=== PATIENT | male | born 1960 | race Caucasian/White ===

== ENCOUNTER 2025-02-17 16:34 | Inpatient (IN) | payer MEDICARE, OTHER ==
[~2025-02-17] VITALS: Ht 175.3 cm; Wt 76.2 kg
[2025-02-17 18:09] LABS: PLATELET COUNT (AUTO) 223 K/uL (150-450); RED BLOOD CELL COUNT(AUTO) 4.60 MIL/uL (4.5-6.0); RED CELL DISTRIBUTION WIDTH 14.3 % (11.5-15.0); WHITE BLOOD COUNT (AUTO) 6.1 K/uL (4.3-11.0)
[2025-02-17 18:24] LABS: ALCOHOL, BLOOD < 3 mg/dL (0-10); ASPARTATE AMINOTRANSFERASE 30 U/L (15-37); CALCIUM, SERUM 9.3 mg/dL (8.5-10.1); CREATININE 1.3 mg/dL (0.6-1.3); SODIUM SERUM 143 mmol/L (136-145); TOTAL PROTEIN, SERUM 6.8 g/dL (6.4-8.2); UREA NITROGEN, BLOOD 25 mg/dL (7-18)
[2025-02-17] MEDS ORDERED: MAGN400O6 PO (18:33)
[2025-02-17] MEDS ORDERED: MELA5TAB PO (18:33)
[2025-02-17] MEDS ORDERED: BREX2TAB PO (18:33)
[2025-02-17] MEDS ORDERED: ACET325T53 PO (18:33)
[2025-02-17] MEDS ORDERED: BISA10SU11 RC (18:33)
[2025-02-17] MEDS ORDERED: MINE133E RC (18:33)
[2025-02-17] MEDS ORDERED: ACET-73 PO (18:33)
[2025-02-17] MEDS ORDERED: ATOR10TA PO (18:33)
[2025-02-17] MEDS ORDERED: QUVIVIQ PO (18:33)
[2025-02-17 20:54] LABS: AMPHETAMINE, URINE NEGATIVE (NEGATIVE); APPEARANCE,URINE CLEAR (CLEAR); BARBITURATE, URINE NEGATIVE (NEGATIVE); BENZODIAZEPINE, URINE NEGATIVE (NEGATIVE); BLOOD, URINE 1+ Ery/uL (NEGATIVE); CANNABINOID, URINE NEGATIVE (NEGATIVE); COCCAINE, URINE NEGATIVE (NEGATIVE); LEUKOCYTE ESTERASE ,URINE NEGATIVE (NEGATIVE); NITRITE, URINE NEGATIVE (NEGATIVE); OPIATE, URINE NEGATIVE (NEGATIVE); UGLUCOSE NEGATIVE (NEGATIVE)
[2025-02-17 21:21] LABS: ADD URINE CULTURE NO; SQUAMOUS EPITHELIAL CELL,UR Few /HPF (None Seen)
[2025-02-17 22:00] VITALS: BP 141/79; TEMP 98; O2SAT 98
[2025-02-17] MEDS ORDERED: ZOLPIDEM TARTRATE 5 MG TABLET PO PRN (23:00)
[2025-02-17] MEDS ORDERED: MAG HYDROX/AL HYDROX/SIMETH 30 ML UDC PO PRN (23:00)
[2025-02-17] MEDS ORDERED: LORAZEPAM 1 MG TABLET PO PRN (23:00)
[2025-02-17] MEDS ORDERED: MAGNESIUM HYDROXIDE 30 ML UDC PO PRN (23:00)
[2025-02-17] MEDS ORDERED: ACETAMINOPHEN 325 MG TABLET PO PRN (23:00)
[2025-02-17] MEDS ORDERED: LORAZEPAM 0.5 MG TABLET PO PRN (23:00)
[2025-02-17] MEDS: BLOOD SUGAR DIAGNOSTIC 1 EACH STRIP IN ONE (23:23)
[2025-02-18 08:00] VITALS: BP 128/81; TEMP 97.8; O2SAT 100
[2025-02-18 08:17] LABS: ASPARTATE AMINOTRANSFERASE 28.0 U/L (15-37); CALCIUM, SERUM 9.0 mg/dL (8.5-10.1); CREATININE 1.3 mg/dL (0.6-1.3); SODIUM SERUM 144.0 mmol/L (136-145); TOTAL PROTEIN, SERUM 6.3 g/dL (6.4-8.2); UREA NITROGEN, BLOOD 23.0 mg/dL (7-18)
[2025-02-18 08:29] LABS: LDL 84 mg/dL (0-99)
[2025-02-18] MEDS: DIVALPROEX SODIUM 125 MG TABLET.DR PO SCH (13:39)
[2025-02-18] MEDS ORDERED: ACETAMINOPHEN ES 500 MG TABLET PO PRN (15:30)
[2025-02-18] MEDS ORDERED: ACETAMINOPHEN 325 MG TABLET PO PRN (15:30)
[2025-02-18] MEDS ORDERED: MINERAL OIL 133 ML (PYXIS) 1 EA ENEMA RC PRN (15:30)
[2025-02-18] MEDS ORDERED: MAGNESIUM HYDROXIDE 30 ML UDC PO PRN (15:30)
[2025-02-18] MEDS ORDERED: BISACODYL SUPP (10 MG) 10 MG/SUPP.RECT SUPP.RECT RC PRN (15:30)
[2025-02-18] MEDS ORDERED: HOME MED MISCELLANEOUS XX SCH (15:30)
[2025-02-18 16:00] VITALS: BP 152/79; TEMP 98.4; O2SAT 98
[2025-02-18] MEDS: ATORVASTATIN 10 MG TABLET PO SCH (18:02)
[2025-02-18 19:58] VITALS: BP 151/99; TEMP 98.1; O2SAT 97
[2025-02-18] MEDS ORDERED: TRAZ-182 PO (20:12)
[2025-02-19 07:20] LABS: CREATININE 1.3 mg/dL (0.6-1.3)
[2025-02-19 08:00] VITALS: BP 120/73; TEMP 98.3; O2SAT 98
[2025-02-19] MEDS: QUETIAPINE FUMARATE 25 MG TABLET PO SCH ×2 (18:10→21:59)
[2025-02-19 20:47] VITALS: BP 112/70; TEMP 98; O2SAT 98
[2025-02-20 08:00] VITALS: BP 107/56; TEMP 98.6; O2SAT 100
[2025-02-20 16:00] VITALS: BP 115/70; TEMP 98.2; O2SAT 98
[2025-02-20 20:00] VITALS: BP 123/79; TEMP 98.2; O2SAT 98
[2025-02-21 08:08] VITALS: BP 131/74; TEMP 97.6; O2SAT 98
[2025-02-21 16:00] VITALS: BP 136/87; TEMP 98.2; O2SAT 99
[2025-02-21 20:10] VITALS: BP 144/81; TEMP 98; O2SAT 98
[2025-02-21] MEDS: ZOLPIDEM TARTRATE 5 MG TABLET PO PRN (22:32)
[2025-02-22 08:00] VITALS: BP 135/86; TEMP 97.7; O2SAT 99
[2025-02-22] MEDS: DIVALPROEX SODIUM 125 MG TABLET.DR PO SCH (13:39)
[2025-02-22] MEDS: QUETIAPINE FUMARATE 25 MG TABLET PO SCH ×2 (13:39→20:17)
[2025-02-22 16:00] VITALS: BP 138/91; TEMP 97.9; O2SAT 98
[2025-02-22 20:00] VITALS: BP 102/72; TEMP 97.6; O2SAT 99
[2025-02-23 08:19] VITALS: BP 100/76; TEMP 97.9; O2SAT 98
[2025-02-23 16:07] VITALS: BP 125/86; TEMP 98; O2SAT 94
[2025-02-23 21:04] VITALS: BP 111/71; TEMP 98.2; O2SAT 99
[2025-02-24 08:00] VITALS: BP 131/72; TEMP 97.8; O2SAT 100
[2025-02-24 16:00] VITALS: BP 137/76; TEMP 98.7; O2SAT 98
[2025-02-24 19:47] VITALS: BP 122/87; TEMP 98.2; O2SAT 98
[2025-02-25 08:00] VITALS: BP 133/90; TEMP 97.8; O2SAT 96
[2025-02-25] MEDS: DIVALPROEX SODIUM 125 MG TABLET.DR PO SCH (14:04)
[2025-02-25 16:09] VITALS: BP 127/77; TEMP 98.4; O2SAT 98
[2025-02-25 20:00] VITALS: BP 136/99; TEMP 97.5; O2SAT 99
[2025-02-26 08:00] VITALS: BP 128/91; TEMP 97.8; O2SAT 96
[2025-02-26] MEDS: QUETIAPINE FUMARATE 25 MG TABLET PO SCH ×2 (13:26→20:18)
[2025-02-26 16:11] VITALS: BP 147/95; TEMP 98.2; O2SAT 96
[2025-02-26 21:13] VITALS: BP 133/72; TEMP 98.2; O2SAT 99
[2025-02-27 07:00] VITALS: BP 121/77; TEMP 97.7; O2SAT 99
[2025-02-27 16:00] VITALS: BP 121/85; TEMP 97.3; O2SAT 100
[2025-02-27 20:00] VITALS: BP 123/83; TEMP 97.9; O2SAT 98
[2025-02-28 08:00] VITALS: BP 110/64; TEMP 97.7; O2SAT 97
[2025-02-28 16:09] VITALS: BP 104/91; TEMP 97.8; O2SAT 98
[2025-02-28 20:54] VITALS: BP 126/83; TEMP 98.4; O2SAT 98
[2025-03-01 08:00] VITALS: BP 110/60; TEMP 97.8; O2SAT 97
[2025-03-01 16:00] VITALS: BP 145/73; TEMP 98.7; O2SAT 100
[2025-03-01 20:09] VITALS: BP 121/88; TEMP 98.1; O2SAT 99
[2025-03-02 08:00] VITALS: BP 104/62; TEMP 98.1; O2SAT 97
[2025-03-02] MEDS: DIVALPROEX SODIUM 125 MG TABLET.DR PO SCH (13:44)
[2025-03-02 16:00] VITALS: BP 111/75; TEMP 97.8; O2SAT 97
[2025-03-02 19:52] VITALS: BP 140/85; TEMP 97.5; O2SAT 100
[2025-03-03 08:00] VITALS: BP 115/75; TEMP 98.7; O2SAT 97
== END 2025-03-03 12:30 | DRG 885 ==
LOC: ER 17:19 → GPS 21:54
PROVIDERS: ADMIT Psychiatry & Neurology Psychiatry; ATTEND Nurse Practitioner Family
DX: F39 Unspecified mood [affective] disorder (principal); F06.8 Other specified mental disorders due to known physiological condition; G93.41 Metabolic encephalopathy; N39.0 Urinary tract infection, site not specified; F02.84 Dementia in other diseases classified elsewhere, unspecified severity, with anxiety; F02.83 Dementia in other diseases classified elsewhere, unspecified severity, with mood disturbance; F02.82 Dementia in other diseases classified elsewhere, unspecified severity, with psychotic disturbance; F29 Unspecified psychosis not due to a substance or known physiological condition; E86.0 Dehydration; Z20.822 Contact with and (suspected) exposure to COVID-19; D64.9 Anemia, unspecified; B96.89 Other specified bacterial agents as the cause of diseases classified elsewhere; E78.5 Hyperlipidemia, unspecified; G20.A1 Parkinson's disease without dyskinesia, without mention of fluctuations; G30.9 Alzheimer's disease, unspecified; F41.9 Anxiety disorder, unspecified; F31.9 Bipolar disorder, unspecified; R53.1 Weakness; Z79.899 Other long term (current) drug therapy; Z73.6 Limitation of activities due to disability; R79.89 Other specified abnormal findings of blood chemistry
CPT/HCPCS: 36415; 80048-TC; 80053-TC; 80061-TC; 80076-TC; 80164-TC; 81001; 82565-TC; 82962-TC; 84443-TC; 85025-TC; 87081-TC; G0480